=== PATIENT | female | born 2000 | race Caucasian/White ===

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

== ENCOUNTER 2021-11-28 13:41 | Emergency (ER) | payer OTHER ==
[~2021-11-28 13:41] MED LIST: BACTRIM DS TAB1 EACH PO; BENTYL 20MG TAB20 MG PO; COLACE 100MG C100 MG PO; KEFLEX CAP 500500 MG PO; REGLAN10 MG PO
[2021-11-28 14:36] LABS: HEMOGLOBIN 14.2 gm/dl (12.3-15.3); RED BLOOD COUNT 4.83 M/UL (4.00-5.10); WHITE BLOOD COUNT 8.7 K/UL (4.5-11.0)
[2021-11-28 15:24] LABS: BUN/CREATININE RATIO 16 (0-10)
[2021-11-28] MEDS ORDERED: BACTRIM DS TAB1 EACH PO (16:48)
== END 2021-11-28 16:54 | disposition home or self-care (01) ==
LOC: ER1 13:41
PROVIDERS: Physician Assistant
DX: N30.00 Acute cystitis without hematuria (principal); R10.2 Pelvic and perineal pain
CPT/HCPCS: 80053; 81001; 84703; 85025; 99284

== ENCOUNTER 2021-12-07 20:41 | Emergency (ER) | payer OTHER ==
[2021-12-07 21:57] LABS: HEMOGLOBIN 13.1 gm/dl (12.3-15.3); RED BLOOD COUNT 4.54 M/UL (4.00-5.10); WHITE BLOOD COUNT 7.9 K/UL (4.5-11.0)
[2021-12-07 22:28] LABS: BUN/CREATININE RATIO 13 (0-10)
[2021-12-08] MEDS ORDERED: LODINE CAP 300300 MG PO (00:18)
[2021-12-08] MEDS ORDERED: OMNICEF 300 MG300 MG PO (00:18)
[2021-12-08] MEDS ORDERED: ZOFRAN ODT 4 MG4 MG PO (00:18)
== END 2021-12-08 00:27 | disposition home or self-care (01) ==
LOC: ER1 20:41
PROVIDERS: Physician Assistant
DX: N10 Acute pyelonephritis (principal); R30.0 Dysuria
CPT/HCPCS: 80053; 81001; 83605; 84703; 85025; 87040; 87077; 87086; 87186; 96374; 96375; 99284; J0696; J1885; Q9967

== ENCOUNTER 2022-06-10 01:22 | Emergency (ER) | payer BC, MEDICAID ==
[~2022-06-10 01:22] MED LIST changes: +LODINE CAP 300300 MG PO; +OMNICEF 300 MG300 MG PO; +ZOFRAN ODT 4 MG4 MG PO
[2022-06-10 01:55] LABS: HEMOGLOBIN 13.2 gm/dl (12.3-15.3); RED BLOOD COUNT 4.49 M/UL (4.00-5.10); WHITE BLOOD COUNT 7.9 K/UL (4.5-11.0)
[2022-06-10 02:19] LABS: BUN/CREATININE RATIO 17 (0-10)
[2022-06-10] MEDS ORDERED: OMNICEF 300 MG300 MG PO (02:48)
[2022-06-10] MEDS ORDERED: AMOX TR-K CLV1 EAC4 PO (02:55)
== END 2022-06-10 02:57 | disposition home or self-care (01) ==
LOC: ER1 01:22
PROVIDERS: Physician Assistant
DX: N39.0 Urinary tract infection, site not specified (principal)
CPT/HCPCS: 80053; 81001; 84703; 85025; 87077; 87086; 87186; 99283